=== PATIENT | male | born 1990 | race Two or more races ===

== ENCOUNTER 2022-07-02 05:20 | Emergency (ER) | payer OTHER ==
[~2022-07-02] VITALS: Ht 177.8 cm; Wt 108.9 kg
--- NOTE | 2022-07-02 05:20 | NUR ---
PT BIB [facility], PREBOOK. TAKEN TO CHAIR
[2022-07-02 05:39] VITALS: BP 136/87
--- NOTE | 2022-07-02 06:10 | NUR ---
PT TAKEN TO CT
[2022-07-02] MEDS ORDERED: KETOROLAC 30 MG/ML VIAL IM ONE (06:40)
--- NOTE | 2022-07-02 07:04 | NUR ---
PATIENT [facility] DEPT. PATIENT EXAMINED BY DR. BOOKER. PATIENT MEDICALLY CLEARED AND RELEASED IN CUSTODY IN STABLE CONDITION. ORIGINAL PRE-BOOK FORM GIVEN TO OFFICER AMANDA. WILLY #[id number]
== END 2022-07-02 07:04 ==
LOC: MED 05:20
DX: S09.90XA Unspecified injury of head, initial encounter (principal); V49.88XA Car occupant (driver) (passenger) injured in other specified transport accidents, initial encounter; Y93.89 Activity, other specified; Y92.89 Other specified places as the place of occurrence of the external cause; Y99.8 Other external cause status
CPT/HCPCS: 70450; 96372; 99284; J1885